=== PATIENT | male | born 1985 | race Caucasian/White ===

== ENCOUNTER 2017-10-29 22:10 | Emergency (ER) | payer OTHER ==
[2017-10-29 22:32] VITALS: RESP 18
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
[2017-10-30] MEDS ORDERED: KETOROLAC 30 MG/ML 1 ML VIAL IM STA (00:19)
[2017-10-30] MEDS ORDERED: ORPHENADRINE 30 MG/ML 2 ML VIAL IM STA (00:19)
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
[2017-10-30 00:47] VITALS: BP 140/66; PULSE 61; TEMP 98.5
== END 2017-10-30 00:46 | disposition home or self-care (01) ==
LOC: EC 22:10
DX: S16.1XXA Strain of muscle, fascia and tendon at neck level, initial encounter (principal); R51 Headache; Z79.899 Other long term (current) drug therapy; Z91.018 Allergy to other foods; Z91.013 Allergy to seafood; Z91.040 Latex allergy status; Z88.8 Allergy status to other drugs, medicaments and biological substances; W22.8XXA Striking against or struck by other objects, initial encounter; Y93.55 Activity, bike riding
CPT/HCPCS: 99283 ×2; 96372 ×3; 72125; 70450; J2360; J1885

== ENCOUNTER → 2018-07-11 | Outpatient (CLI) | payer OTHER ==
--- NOTE | 2018-07-11 09:06 | XR ---
EXAMINATION TYPE: XR thoracic spine complete DATE OF EXAM: 07/11/2018 CLINICAL HISTORY: Back pain and numbness in the upper back TECHNIQUE: Frontal, lateral, and swimmer's view of thoracic spine are obtained. COMPARISON: None. FINDINGS: There is a very mild dextroscoliosis of the thoracic spine. Thoracic spine show satisfactor y alignment without evidence of acute fracture or malalignment. Vertebral body heights and disc spac e heights are preserved. Visualized ribs are unremarkable. IMPRESSION: No acute fracture or malalignment is seen in the thoracic spine. Given the patient's desc ription of numbness MRI could evaluate for disc herniation or cord compression.
--- NOTE | 2018-07-11 09:06 | XR ---
EXAMINATION TYPE: XR lumbosacral spine min 4V DATE OF EXAM: 07/11/2018 CLINICAL HISTORY: Low back pain after injury a few months ago. TECHNIQUE: Frontal, lateral, and oblique images of the lumbar spine are obtained. COMPARISON: None FINDINGS: There are 5 lumbar type vertebral bodies identified. The lumbar spine shows satisfactory alignment without evidence of acute fracture or dislocation. Vertebral body heights and disk space he ights are within normal limits. The oblique images appear within normal limits. The overlying soft tissue appears unremarkable. IMPRESSION: Unremarkable study.
== END | disposition home or self-care (01) ==
LOC: RADXRMAIN 07:17
DX: M54.6 Pain in thoracic spine (principal); M54.41 Lumbago with sciatica, right side; G89.29 Other chronic pain
CPT/HCPCS: 72072; 72110

== ENCOUNTER → 2018-08-22 | Outpatient (CLI) | payer OTHER ==
--- NOTE | 2018-08-22 22:32 | MR ---
EXAMINATION TYPE: MR lumbar spine wo con DATE OF EXAM: 08/22/2018 COMPARISON: Lumbar spine x-ray July 11, 2018 HISTORY: Right-sided low back pain with right-sided sciatica per order. Pain in back from injury for 4 months with pain into both lower extremities per patient. TECHNIQUE: Multiplanar, multisequence imaging of the lumbar spine is performed without IV contrast. FINDINGS: Sagittal images of the lumbar spine show vertebral body heights and alignment to appear sat isfactory. The intervertebral discs demonstrate normal heights and hydration. The conus medullaris i s normal in position and signal. The bone marrow signal intensity is within normal limits. Axial images show no focal disc disease, or facet degenerative change at any lumbar level. There is no spinal canal stenosis, neural foraminal narrowing, or evidence of nerve root compromise. Paraspina l muscle bulk is maintained. No suspicious retroperitoneal finding is seen. IMPRESSION: No suspicious disc herniations identified to account for patient's radiculopathy type sym ptoms. Unremarkable study.
== END ==
LOC: RADMRIMAIN 20:30
PROVIDERS: ATTEND Physical Medicine & Rehabilitation
DX: M54.41 Lumbago with sciatica, right side (principal)
CPT/HCPCS: 72148

== ENCOUNTER → 2021-05-10 | Outpatient (CLI) | payer OTHER ==
[2021-05-10 19:24] LABS: C Reactive Protein <0.30 mg/dL (0.00-0.80); Rheumatoid Factor, Qnt <10 IU/mL (0-15); Uric Acid 4.8 mg/dL (3.7-8.7)
[2021-05-10 20:05] LABS: Cyclic Citrull Pep IgG Unit <0.5 U/mL; Cyclic Citrullinated Pep IgG NEGATIVE (NEGATIVE)
[2021-05-12 14:14] LABS: Anti-DNA, DS unit <1.0 IU/mL; DNA Double-Stranded NEGATIVE (NEGATIVE)
== END | disposition home or self-care (01) ==
LOC: LABWHC1 09:44
PROVIDERS: ATTEND Internal Medicine
DX: M79.641 Pain in right hand (principal); M79.672 Pain in left foot
CPT/HCPCS: 36415; 84443; 84550; 85652; 86038; 86039; 86140; 86200; 86225; 86431

== ENCOUNTER 2022-04-22 16:30 | Emergency (ER) | payer OTHER ==
[2022-04-22 16:36] VITALS: TEMP 98.5
--- NOTE | 2022-04-22 17:51 | ED ---
General Adult HPI - General Chief complaint: Abdominal Pain Stated complaint: Abd pain Time Seen by Provider: 04/22/22 17:06 Source: patient Mode of arrival: ambulatory Limitations: no limitations - History of Present Illness Initial comments: This is a 37-year-old male with no past medical history presents emergency department for right upper quadrant abdominal pain. The patient stated that this pain began 2 days ago and has been consistent with stabbing pain in the right upper quadrant. The patient stated this began when he had a greasy, fried chicken sandwich and stayed persistent. The patient also stated that the pain became worse after he ate a sandwich earlier today. The patient reported some mild nausea without vomiting. The patient stated that he didn't have any radiation of this pain. The patient stated this pain is however slightly easier to manage compared to his previous appendicitis pain. The patient denied any other acute pain or complaints at this time. - Related Data Home Medications Medication Instructions Recorded Confirmed Albuterol Inhaler [Ventolin Hfa 1 - 2 puff INHALATION Q6HR PRN 10/01/15 10/01/15 Inhaler] Beclomethasone Dipropionate [Qvar 1 puff INHALATION 10/01/15 10/01/15 80 mcg] Erythromycin Ophth Oint [Romycin 1 applic LEFT EYE QID 10/01/15 10/01/15 Ophth Oint] HYDROcodone/APAP 10-325MG [[place] 1 tab PO Q4HR PRN 10/01/15 10/01/15 10-325] Moxifloxacin [Vigamox 0.3%] 1 drop LEFT EYE TID 10/01/15 10/01/15 cephALEXin [Keflex] 750 mg PO Q12HR 10/01/15 10/01/15 Previous Rx's Medication Instructions Recorded Cyclobenzaprine [Flexeril] 5 mg PO TID #12 tablet 10/30/17 Ibuprofen [Motrin] 600 mg PO Q6HR PRN #20 tab 10/30/17 Allergies Allergy/AdvReac Type Severity Reaction Status Date / Time banana Allergy Anaphylaxis Verified 04/22/22 16:36 iodine Allergy Swelling Verified 04/22/22 16:36 latex Allergy Unknown Verified 04/22/22 16:36 shellfish derived [Shellfish] Allergy Swelling Verified 04/22/22 16:36 Review of Systems ROS Statement: Those systems with pertinent positive or pertinent negative responses have been documented in the HPI. ROS Other: All systems not noted in ROS Statement are negative. Past Medical History Past Medical History: Asthma History of Any Multi-Drug Resistant Organisms: None Reported Past Surgical History: Appendectomy Additional Past Surgical History / Comment(s): orbital fracture repain Past Psychological History: No Psychological Hx Reported Smoking Status: Never smoker Past Alcohol Use History: Occasional Past Drug Use History: None Reported General Exam Limitations: no limitations General appearance: alert, in no apparent distress Head exam: Present: atraumatic, normocephalic, normal inspection Eye exam: Present: normal appearance, PERRL Pupils: Present: normal accommodation ENT exam: Present: normal exam, normal oropharynx, mucous membranes moist Neck exam: Present: normal inspection, full ROM Respiratory exam: Present: normal lung sounds bilaterally Cardiovascular Exam: Present: regular rate, normal rhythm, normal heart sounds GI/Abdominal exam: Present: soft, tenderness (Tenderness to the right upper quadrant with positive Montez sign) Extremities exam: Present: normal inspection, full ROM Back exam: Present: normal inspection, full ROM Neurological exam: Present: alert, oriented X3, CN II-XII intact Psychiatric exam: Present: normal affect, normal mood Skin exam: Present: warm, dry Course Vital Signs 04/22/22 16:34 Temperature 98.5 F Pulse Rate 74 Respiratory 20 Rate Blood Pressure 146/86 O2 Sat by Pulse 99 Oximetry Medical Decision Making - Medical Decision Making Was pt. sent in by a medical professional or institution (DMITRIY Jacob, PSYCHOLOGIST CLINICAL, urgent care, hospital, or [place] health care facility...) When possible be specific @ -No Did you speak to anyone other than the patient for history (EMS, parent, family, police, friend...)? What history was obtained from this source @ -No Did you review nursing and triage notes (agree or disagree)? Why? @ -I reviewed and agree with nursing and triage notes Were old charts reviewed (outside hosp., previous admission, EMS record, old EKG, old radiological studies, urgent care reports/EKG's, [place] health care facility records)? Report findings @ -No old charts were reviewed Differential Diagnosis (chest pain, altered mental status, abdominal pain women, abdominal pain men, vaginal bleeding, weakness, fever, dyspnea, syncope, headache, dizziness, GI bleed, back pain, seizure, CVA, palpatations, mental health)? @ -Acute cholecystitis, gastritis, abdominal wall muscle strain EKG interpreted by me (3pts min.). @ -None X-rays interpreted by me (1pt min.). @ -None done CT interpreted by me (1pt min.). @ -None done U/S interpreted by me (1pt. min.). @ -Right upper quadrant ultrasound was obtained and was reviewed by myself showing no acute process. What testing was considered but not performed or refused? (CT, X-rays, U/S, l abs)? Why? @ -None What meds were considered but not given or refused? Why? @ -None Did you discuss the management of the patient with other professionals (professionals i.e. , PA, PSYCHOLOGIST CLINICAL, lab, RT, psych nurse, rn social services, sprue cutting press operator, teacher, admissions officer, residential case manager)? Give summary @ -No Was smoking cessation discussed for >3mins.? @ -No Was critical care preformed (if so, how long)? @ -No Were there social determinants of health that impacted care today? How? (Homelessness, low income, unemployed, alcoholism, drug addiction, transportation, low edu. Level, literacy, decrease access to med. care, custodial, rehab)? @ -No Was there de-escalation of care discussed even if they declined (Discuss DNR or withdrawal of care, Hospice)? DNR status @ -No What co-morbidities impacted this encounter? (DM, HTN, Smoking, COPD, CAD, Cance r, CVA, ARF, Chemo, Hep., AIDS, mental health diagnosis, sleep apnea, morbid obesity)? @ -None Was patient admitted / discharged? Hospital course, mention meds given and route, prescriptions, significant lab abnormalities, going to OR and other pertinent info. @ -The patient was seen and evaluated in the emergency room department. Physical exam, the patient was resting in bed without any acute distress. Vital signs admission were stable. All laboratory workup was within normal limits and imaging was negative. Once I told the patient that her breathing was negative, he did state that he was lifting a car just before the start of symptoms and thinks he could have pulled a muscle. The patient remained stable and was stable for discharge home. The patient was advised report back to the emergency department if his pain became acutely worse. The patient was agreeable to this and was discharged home in stable condition. Undiagnosed new problem with uncertain prognosis? @ -No Drug Therapy requiring intensive monitoring for toxicity (Heparin, Nitro, Insulin, Cardizem)? @ -No Were any procedures done? @ -No Diagnosis/symptom? @ -Abdominal pain, NOS Acute, or Chronic, or Acute on Chronic? @ -Acute Uncomplicated (without systemic symptoms) or Complicated (systemic symptoms)? @ -Uncomplicated Side effects of treatment? @ -No Exacerbation, Progression, or Severe Exacerbation? @ -No Poses a threat to life or bodily function? How? (Chest pain, [place], MA, pneumonia, PE, COPD, DKA, ARF, appy, cholecystitis, CVA, Diverticulitis, Homicidal, Suicidal, threat to staff... and all critical care pts) @ -No - Lab Data Result diagrams: 04/22/22 17:28 04/22/22 17:28 Lab Results 04/22/22 04/22/22 Range/Units 17:28 17:28 WBC 7.0 (3.8-10.6) k/uL RBC 5.00 (4.30-5.90) m/uL Hgb 16.3 (13.0-17.5) gm/dL Hct 44.0 (39.0-53.0) % MCV 88.0 (80.0-100.0) fL MCH 32.6 (25.0-35.0) pg MCHC 37.1 H (31.0-37.0) g/dL RDW 12.4 (11.5-15.5) % Plt Count 244 (150-450) k/uL MPV 7.8 Hyperchromasia Marked Sodium 141 (137-145) mmol/L Potassium 4.7 (3.5-5.1) mmol/L Chloride 106 (98-107) mmol/L Carbon Dioxide 27 (22-30) mmol/L Anion Gap 8 mmol/L BUN 19 (9-20) mg/dL Creatinine 1.14 (0.66-1.25) mg/dL Est GFR (CKD-EPI)AfAm >90 (>60 ml/min/1.73 sqM) Est GFR (CKD-EPI)NonAf 83 (>60 ml/min/1.73 sqM) Glucose 99 (74-99) mg/dL Calcium 9.6 (8.4-10.2) mg/dL Magnesium 2.0 (1.6-2.3) mg/dL Total Bilirubin 0.8 (0.2-1.3) mg/dL AST 23 (17-59) U/L ALT 27 (4-49) U/L Alkaline Phosphatase 57 (38-126) U/L Total Protein 7.0 (6.3-8.2) g/dL Albumin 4.4 (3.5-5.0) g/dL Lipase 103 (23-300) U/L Disposition Clinical Impression: Abdominal pain Disposition: HOME SELF-CARE Condition: Stable Instructions (If sedation given, give patient instructions): Abdominal Pain (ED) Is patient prescribed a controlled substance at d/c from ED?: No Referrals: None,Stated [Primary Care Provider] - 1-2 days Time of Disposition: 19:15
--- NOTE | 2022-04-22 18:06 | US ---
EXAMINATION TYPE: US abdomen limited DATE OF EXAM: 04/22/2022 COMPARISON: NONE CLINICAL HISTORY: RUQ pain, r/o jackelyn. RUQ pain, nausea x 2 days TECHNIQUE: Multiple sonographic images of the right upper quadrant are obtained. FINDINGS: EXAM MEASUREMENTS: Liver Length: 16.4 cm Gallbladder Wall: 0.3 cm CBD: 0.4 cm Right Kidney: 9.9 x 5.4 x 4.4 cm BEND SORTER NOTES: *Limitations due to large amount of overlying bowel content Pancreas: Obscured by bowel gas Liver: appears wnl Gallbladder: contracted Evidence for sonographic Montez's sign: no CBD: limited evaluation Right Kidney: no evidence of hydronephrosis IMPRESSION: No gallstones or dilated ducts. No focal liver defect.
[2022-04-22 18:13] LABS: ALT 27 U/L (4-49); AST 23 U/L (17-59); African American GFR (CKD) >90 (>60 ml/min/1.73 sqM); Albumin 4.4 g/dL (3.5-5.0); Alkaline Phosphatase 57 U/L (38-126); Anion Gap 8 mmol/L; Blood Urea Nitrogen 19 mg/dL (9-20); Calcium 9.6 mg/dL (8.4-10.2); Carbon Dioxide 27 mmol/L (22-30); Chloride 106 mmol/L (98-107); Glucose 99 mg/dL (74-99); Lipase 103 U/L (23-300); Non-African American GFR(CKD) 83 (>60 ml/min/1.73 sqM); Potassium 4.7 mmol/L (3.5-5.1); Sodium 141 mmol/L (137-145); Total Bilirubin 0.8 mg/dL (0.2-1.3)
[2022-04-22 19:04] LABS: Basophils # (A) 0.1 k/uL (0-0.2); Basophils % (A) 1 %; Eosinophils # (A) 0.4 k/uL (0-0.7); Eosinophils % (A) 5 %; HGB 16.3 gm/dL (13.0-17.5); Hyperchromasia Marked; Lymphocytes # (A) 1.9 k/uL (1.0-4.8); Lymphocytes % (A) 27 %; MCH 32.6 pg (25.0-35.0); MCHC 37.1 g/dL (31.0-37.0); Mean Platelet Volume 7.8; Monocytes # (A) 0.4 k/uL (0-1.0); Monocytes % (A) 6 %; Neutrophils # (A) 4.1 k/uL (1.3-7.7); Neutrophils % (A) 59 %; Platelet Count 244 k/uL (150-450); RDW 12.4 % (11.5-15.5)
[2022-04-22 19:42] VITALS: BP 135/80; PULSE 79; RESP 18
== END 2022-04-22 19:42 | disposition home or self-care (01) ==
LOC: EC 16:30
DX: R10.11 Right upper quadrant pain (principal); J45.909 Unspecified asthma, uncomplicated; Z91.040 Latex allergy status; Z91.013 Allergy to seafood; Z91.018 Allergy to other foods; Z88.8 Allergy status to other drugs, medicaments and biological substances; Z79.51 Long term (current) use of inhaled steroids; Z79.1 Long term (current) use of non-steroidal anti-inflammatories (NSAID); Z79.899 Other long term (current) drug therapy
CPT/HCPCS: 36415; 76705; 80053; 83690; 83735; 85025; 99284

== ENCOUNTER 2023-05-04 12:21 | Emergency (ER) | payer OTHER ==
[2023-05-04 13:01] VITALS: RESP 18
--- NOTE | 2023-05-04 13:25 | CT ---
EXAMINATION TYPE: CT brain wo con DATE OF EXAM: 05/04/2023 COMPARISON: 10/29/2017 INDICATION: HEADACHE DLP: 1093.4 mGycm, Automated exposure control for dose reduction was used. CONTRAST: None CT of the brain is performed utilizing 3 mm thick sections through the posterior fossa and 3 mm thick sections through the remaining calvarium. Study is performed within 24 hours of arrival to the hosp [place]. No abnormal hyperdensity is present to suggest an acute intracranial hemorrhage. No mass lesion is evident. No acute infarcts are evident. Ventricles and sulci are appropriate for the patient age. Paranasal sinuses and mastoid air cells within the [id number] are clear. IMPRESSION: 1. No acute intracranial process. Follow-up MRI can be performed as clinically indicated.
[2023-05-04] MEDS ORDERED: KETOROLAC 15 MG/ML 1 ML VIAL IM STA (13:52)
--- NOTE | 2023-05-04 13:57 | ED ---
General Adult HPI - General Chief complaint: Headache Stated complaint: headache, neck pain, referal Time Seen by Provider: 05/04/23 13:01 Source: patient, RN notes reviewed Mode of arrival: ambulatory Limitations: no limitations - History of Present Illness Initial comments: Patient a 38-year-old male with no significant past medical history, presenting to the emergency room today with a chief complaint of headaches. Patient has been that over last 4 days been having a headache located to the back of the left side of his head. Denies any injury or trauma. Patient states that pain is worse with certain movements of his neck. Specially if he rotates to the left or if he looks down. He states that he does have an active job but there is no new injury or trauma. Patient does admit that is been taking ibuprofen has had some relief of the symptoms. Patient states he went to urgent care was directed here to the emergency room to have a CT scan. Patient denies any visual change. Denies any nausea vomiting. Denies any fevers. Denies any chest pain or shortness of breath. - Related Data Home Medications Medication Instructions Recorded Confirmed Albuterol Inhaler [Ventolin Hfa 1 - 2 puff INHALATION Q6HR PRN 10/01/15 10/01/15 Inhaler] Beclomethasone Dipropionate [Qvar 1 puff INHALATION 10/01/15 10/01/15 80 mcg] Erythromycin Ophth Oint [Romycin 1 applic LEFT EYE QID 10/01/15 10/01/15 Ophth Oint] HYDROcodone/APAP 10-325MG [[place] 1 tab PO Q4HR PRN 10/01/15 10/01/15 10-325] Moxifloxacin [Vigamox 0.3%] 1 drop LEFT EYE TID 10/01/15 10/01/15 cephALEXin [Keflex] 750 mg PO Q12HR 10/01/15 10/01/15 Previous Rx's Medication Instructions Recorded Cyclobenzaprine [Flexeril] 5 mg PO TID #12 tablet 10/30/17 Ibuprofen [Motrin] 600 mg PO Q6HR PRN #20 tab 10/30/17 Ibuprofen [Motrin] 600 mg PO Q6HR PRN #40 day 05/04/23 methocarbamoL [Robaxin] 1,000 mg PO TID PRN 5 Days #30 tab 05/04/23 Allergies Allergy/AdvReac Type Severity Reaction Status Date / Time banana Allergy Anaphylaxis Verified 05/04/23 12:33 iodine Allergy Swelling Verified 05/04/23 12:33 latex Allergy Unknown Verified 05/04/23 12:33 shellfish derived [Shellfish] Allergy Swelling Verified 05/04/23 12:33 Review of Systems ROS Statement: Those systems with pertinent positive or pertinent negative responses have been documented in the HPI. ROS Other: All systems not noted in ROS Statement are negative. Past Medical History Past Medical History: Asthma History of Any Multi-Drug Resistant Organisms: None Reported Past Surgical History: Appendectomy Additional Past Surgical History / Comment(s): orbital fracture repain Past Psychological History: No Psychological Hx Reported Smoking Status: Never smoker Past Alcohol Use History: Occasional Past Drug Use History: None Reported General Exam - General Exam Comments Initial Comments: General: The patient is awake and alert, in no distress, and does not appear acutely ill. Eye: Pupils are equal round reactive to light. Extra-ocular movements are intact. There is normal conjunctiva bilaterally. No signs of icterus. Ears, nose, mouth and throat: There are moist mucous membranes and no oral lesions. Neck: The neck is supple, there is no tenderness or JVD. Respiratory: respirations are non-labored Musculoskeletal: Patient shows full range of motion of his neck. He does have increased tenderness with rotation to the left. Patient does have tenderness to the left sternocleidomastoid area. Neurological: A&O x 3. CN II-XII intact, There are no obvious motor or sensory deficits. Coordination appears grossly intact. Speech is normal. Skin: Skin is warm and dry and no rashes or lesions are noted. Psychiatric: Cooperative, appropriate mood & affect, normal judgment. Limitations: no limitations Course Vital Signs 05/04/23 12:30 Temperature 98.6 F Pulse Rate 84 Respiratory 18 Rate Blood Pressure 141/89 O2 Sat by Pulse 98 Oximetry Medical Decision Making - Medical Decision Making History was obtained from patient/Nurse Initial assessment and chief complaint: Neck pain, headache Chronic conditions affecting care: None Social determinants affecting care: None Differential diagnosis included, but not limited to: Cervical strain, herniated disc, migraine, tension headache, intracranial bleed Any imaging that may have been performed was also reviewed. I did an independent interpretation of the patient's imaging. My interpretation of CT of head was reviewed was unremarkable. 38-year-old male presented to the emergency room today with a chief complaint of headache over the last 4 days. Denies any injury or trauma. Patient does admit that pain is located to the back left side and worse with certain movements of his neck on the left. Was seen at urgent care was directed here to the emergency room for CAT scan. A CT was ordered and was negative for any acute abnormality. Patient's pain is reproduced on palpation of the left side of the neck and with certain movements. Patient vitals are stable. Nontoxic- appearing. Was discussed most likely cervical strain causing his headaches. Discussed about continue with anti-inflammatories as states there is improvement when he takes this. He is taking ibuprofen just twice a day. Discussed about taking it 4 times a day as needed. Discussed about muscle relaxers and that they could make him drowsy. Prescription has been given to the patient and sent to his pharmacy. Patient was given Toradol shot here in the emergency room. Is advised close follow-up with his PCP returning if any symptoms increase or worsen. States understanding and is agreement this plan. Disposition Clinical Impression: Cervical strain, Headache Disposition: HOME SELF-CARE Condition: Good Instructions (If sedation given, give patient instructions): Acute Headache (ED) Additional Instructions: Please use medication as discussed. Please follow-up with family doctor in the next 2 days. Please return to emergency room if the symptoms increase or worsen or for any other concerns. Prescriptions: Ibuprofen [Motrin] 600 mg PO Q6HR PRN #40 day PRN Reason: Pain methocarbamoL [Robaxin] 1,000 mg PO TID PRN 5 Days #30 tab PRN Reason: pain Is patient prescribed a controlled substance at d/c from ED?: No Referrals: Jean-Paul Cuevas [Primary Care Provider] - 1-2 days Time of Disposition: 13:57
[2023-05-04 14:43] VITALS: BP 136/86; PULSE 80; TEMP 97.9
== END 2023-05-04 14:22 | disposition home or self-care (01) ==
LOC: EC 12:21
DX: S16.1XXA Strain of muscle, fascia and tendon at neck level, initial encounter (principal); R51.9 Headache, unspecified; J45.909 Unspecified asthma, uncomplicated; Z91.018 Allergy to other foods; Z91.013 Allergy to seafood; Z91.041 Radiographic dye allergy status; Z91.040 Latex allergy status; Z79.899 Other long term (current) drug therapy
CPT/HCPCS: 70450; 99284; 96372; J1885

== ENCOUNTER → 2023-09-16 | Outpatient (CLI) | payer OTHER ==
--- NOTE | 2023-09-17 21:45 | MR ---
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 History of injury 2018. COMPARISON: 07/18/2023. TECHNIQUE: Multi planar, multi sequence imaging was performed utilizing: T1-weighted, T2-weighted, an d turbo inversion recovery imaging of the cervical spine. IV Contrast: cc (none if empty) FINDINGS: Alignment: The cervical vertebral bodies have preserved heights. Alignment is within normal limits gi jennie patient positioning. Bones: Osteophytes and disc space narrowing most pronounced at the C5-C6 vertebral levels. Cord: The spinal cord is unremarkable with regards to their signal intensity and morphology. Discs: Intervertebral disc signal is maintained. C2-C3: No significant disc pathology. The spinal canal is patent. No neural foraminal stenosis. C3-C4: No significant disc pathology. The spinal canal is patent. No neural foraminal stenosis. C4-C5: No significant disc pathology. The spinal canal is patent. No neural foraminal stenosis. C5-C6: A disc osteophyte complex is present with mild spinal canal stenosis. Bilateral facet and unc overtebral joint arthropathy are present with mild to moderate bilateral neural foraminal stenosis. C6-C7: No significant disc pathology. The spinal canal is patent. No neural foraminal stenosis. C7-T1: No significant disc pathology. The spinal canal is patent. No neural foraminal stenosis. Other: Right superficial parotid gland high T2 signal cystic lesion measuring 14 x 10 mm just anterio r to the sternocleidomastoid muscle. There is loss of flow void within the right vertebral artery compared to left series 601 image 39. IMPRESSION: 1. No evidence for disc herniation or significant spinal canal stenosis. 2. Multilevel disc degeneration with associated osteoarthritic changes worse at C5-C6 with mild to mo derate bilateral neural foraminal stenosis. 3. Loss of flow void within the right vertebral artery on a few of the images unclear if this is due to slow flow or occlusion. Consider evaluation with CTA of the neck for further workup. 4. 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
== END | disposition home or self-care (01) ==
LOC: RADMRIMAIN 09:18
PROVIDERS: ATTEND Orthopaedic Surgery
DX: M50.322 Other cervical disc degeneration at C5-C6 level (principal); M47.22 Other spondylosis with radiculopathy, cervical region; M99.71 Connective tissue and disc stenosis of intervertebral foramina of cervical region
CPT/HCPCS: 72141

== ENCOUNTER → 2024-03-14 | Outpatient (CLI) | payer OTHER | END | disposition home or self-care (01) | LOC: LABWHC1 08:55 | PROVIDERS: ATTEND Orthopaedic Surgery | DX: Z01.818 Encounter for other preprocedural examination (principal); Z22.322 Carrier or suspected carrier of Methicillin resistant Staphylococcus aureus; M48.02 Spinal stenosis, cervical region; M47.26 Other spondylosis with radiculopathy, lumbar region | CPT/HCPCS: 36415; 86850; 86900; 86901; 87070 ==

== ENCOUNTER 2024-03-21 05:44 | Day surgery (SDC) | payer OTHER ==
--- NOTE | 2024-03-18 07:31 | P.HPOR ---
History of Present Illness H&P Date: 03/13/24 .D:Date: 03/13/24 : 03:27pm .T:Title: PRE-OP H1 [facility] [address] [place], [place] [address] [address]| PROVIDER: MARIALUISA BRIONES DO CLINICAL SUMMARY: Mr. Jones is a 39-year-old male presenting with severe cervical pain (VAS 7/10) and bilateral upper extremity radiculopathy. He experiences constant posterior neck pain radiating to bilateral upper extremities, with sharp shooting qualities and intermittent "stabbing ice-pick" sensations. He reports progressive upper extremity numbness, tingling, and increased neck stiffness with activity. Imaing confirms C3-6 HNP with spondylosis and stenosis. Pt has elected to undergo C3-6 ACDF. Risks and benefits discussed below. Pt willing to proceed. DEMOGRAPHICS: Age: 39 year Height: 5'10" Weight: 185 lbs BP:/ BMI: 26.54 kg/m2 Occupation: Self CC: cervical pain VAS: 7 HISTORY: Mr. Jones presents to the office today, 03/13/24, for a preoperative appointment preceding his C4-6 ACDF. The patient reports experiencing a continued constant ache-like pain around the posterior neck that radiates down into the bilateral upper extremities with a sharp, shooting quality. The patient notes an intermittent "stabbing ice-pick" sensation around the base of the head down into the posterior neck, as well as a throbbing sensation around the left eye. The patient does not history of left orbital fracture several years ago. He notes progressive upper extremity numbness and tingling. He reports increased neck stiffness after prolonged activity. He states his current symptoms worsen with any quick movements of the neck or repetitive use of the upper extremities. The patient notes mild sleep disturbances related to his ongoing pain and associated symptoms. The patient has trialed all conservative treatment measures listed below with only mild, temporary relief. The patient is currently taking Gabapent in for relief of his current symptoms. Otherwise, the patient denies any f/c/sob/cp, perineal numbness or tingling, bowel or bladder incontinence/retention. Patient is ambulatoryindependently. The patients' past social, medical, family, surgical history, as well as review of systems, have been reviewed. Please refer to the Neurosurgery History and Physical form that has been scanned into our electronic medical record system. 16 points review of systems completed and as stated in HPI, all other systems reviewed are negative. PAST TREATMENTS: PAST IMAGING: - Yes TRAUMA RELATED: - No WORK RELATED: - No PT IN LAST 6 MONTHS: - Yes; no relief PHYSICIAN DIRECTED HOME EXERCISE PROGRAM: - Yes; no relief ACTIVITY MODIFICATION: - Yes MEDICATIONS: - Gabapentin ALTERNATIVE INTERVENTIONS (CHIROPRACTIC, ACUPUNCTURE, MASSAGE, RICE): - Yes (home heat/ice therapies & rest); mild, temporary relief BRACING: - No INJECTIONS (MG, TF, RFA): - None MEDICAL HISTORY: Past Medical History: Reviewed, see appropriate section of the chart for details. Past Spine Surgical History: None Social History: Reviewed, see appropriate section of the chart for details. P3 Family History: Reviewed, see appropriate section of the chart for details. P2 Current Medications: P1Rx: gabapentin 300 mg capsule Ref: 0 PHYSICAL EXAM: General: AOX3, NAD, Well hydrate, Well nourished HEENT: No lumps or masses Extremities: No color changes, no pooling INTEGUMENT: Appearance:Normal color and turgor Surgical Incisions: None Hairy Patches: ABSENT Dorsal Skin Dimples: Normal [employer] spots: ABSENT PALPATION: TTP Midline:NO Paracervical:YES Parathoracic:NO Paralumbar:NO SIJ TESTING: TTP (NONE) * [place] Finger:- * FABER4:- * Compression:- * Distraction:- * Thigh thrust:- * Hip thrust: - POSTURAL BALANCE: Coronal:BALANCED Sagittal:BALANCED Shoulder height: LEVEL Pelvic Girdle: LEVEL ROM AND APPEARANCE: Neck:RESTRICTED Lumbar:UNRESTRICTED Shoulders: Symmetrical Hips: Symmetrical Knees: Symmetrical Hands: Symmetrical Feet: Symmetrical VASCULAR STATUS: PALPABLE PULSES B/L UE AND LE 2/4 RAD/ULNAR/DP/PT Edema: NONE NEUROLOGICAL EXAMINATION: Mental Status: Awake, alert, oriented fully with normal attention, concentration and memory. Fluent appropriate speech. CRANIAL NERVES: I: Olfactory not tested. II: Visual acuity normal, no visual field deficit noted with confrontation. III,IV: Normal pupillary reflexes & intact extraocular movements without nystagmus. V,: Intact symmetrical facial sensation. VII: Intact symmetrical facial motor movementVIII: Hearing intact. IX,X: Intact gag, swallow, & normal voice. XI: Sternocleidomastoid, trapezius function intact. XII: Tongue midline with normal movements. TENSIONING: L'HERMITTE'S SIGN NEG SPURLUNG'S SIGN POS CUBITAL COMPRESSION NEG TINELS AT WRIST NEG SLR/CROSSED SLR NEG MOTOR EXAM (0-5/5, NT) Muscle appearance:Symmetrical, without signs of atrophy or dystrophy UPPER EXTREMITY RIGHT LEFT Shoulder Abduction 5 5 Biceps 5 5 Triceps 5 5 Wrist Extension 4 4+ Hand Intrnsics 5 5 Sandfill Operator Surface 4 4 LOWER EXTREMITY RIGHT LEFT Hip Flexion 5 5 Knee Extension 5 5 Knee Flexion 5 5 Dorsiflexion 5 5 Plantarflexion 5 5 EHL 5 5 FHL 5 5 REFLEXES (0-4/2, NT): RIGHT LEFT Bicep 2 2 Brachioradialis 2 2 Tricep 2 2 Patellar 2 2 Achilles 2 2 PATHOLOGICAL REFLEXES: RIGHT LEFT JEFFREY'S ABSENT ABSENT CLONUS ABSENT ABSENT BABINSKI ABSENT ABSENT RECTAL TONE: INTACT SENSATION (0-4, NT): Sensation intact to LT and Pain * C5-T1 distribution BUE * L2-S2 distribution BLE *exceptions below* DERMATOMAL DEFICIT/RADICULAR PATTERN: C4-C6 GAIT AND FUNCTIONAL EVALUATION: AMBULATORY AID NONE ROMBERG'S TEST INTACT HAND AND FINGER DEXTERITY INTACT YES DYSDIADOCHOKINESIA EXAM NEG B/L YES TOE/HEEL WALK INTACT WITH GOOD BALANCE YES SQUAT AND RISE W/O ASSISTANCE TO 60 DEG KNEE FLEXION YES SINGLE LEG STANCE INTACT TRENDELENBURG NEG IMAGING CT angio head and neck at [facility] 12/08/23: Similar findings to MRI with collapse of C4-5 and C5-6 that is severe with DDD and sclerosis due to the collapse. NO fractues noted. See report for angio read. No significant stenosis noted. MRI Cervical spine w/wo 09/16/23: Reviewed again. C4-6 degenerative changes with severe collapse of C5-6 disc space as well as moderate collapse of C4-5. There is kyphosis segmentally at C4-5 due to collapse. Degenerative disc herniations present at each level causing moderate stenosis at C4-5 and severe stenosis at C5-6 centrally and foraminally. No fractures noted. C0-1 and C1-2 are stable at this time. Cyst is all but gone from the SCM at this time as it was after the biopsy. C spine XR done at [facility] 4/16/24 AP/LAT/FLEX/EXT/OB: Reviewed again. C4-6 spondylosis with disc collapse, osteophyte formation and kyphosis present due to spondylotic collapse. IMPRESSION: It was my pleasure to have seen and examinedJerry.I reviewed the patient's clinical syndrome, physical findings, and imaging studies during the appointment today. It is my impression that the patient has a diagnosis of. 1. C4-6 spondylosis with stenosis 2. Bilateral upper extremity radiculopathy 3. Right parotid cyst, benign PLAN: DISCUSSION: -I have discussed with the patient their clinical signs and symptoms, imaging, and treatment options. We have discussed risks, benefits, potential outcomes and natural course as pertains top their issues. The patient understands and would like to proceed as follows below: SURGICAL RECOMMENDATION -C4-6 Anterior cervical discecomty and fusion anterior right side approach out pt 1.25 hr THERAPIES - -Cont. with home exercises and home PT exercises as able -Cont. with Heat/Ice as warranted -Cont. with supplementation Vit D, Vit C, Ca2+, High protein diet -OK for massage or other alternative treatment modalities as able. If it exacerbates your sx do not continue ACTIVITY -Recommend walking up to 30 min 2x daily on a flat easy surface with good support. MEDICATIONS -Take as directed -Cont. home medications as directed by your PCP. Check with your PCP for any medication interactions or issues if needed. IMAGING -N/A INJECTIONS -N/A Spine Surgery Risk Review Mr. Jones is presenting for evaluation of cervical pain. It was my pleasure to have seen and examined Mr. Jones. In our visit today we have had a chance to go over subjective complaints, physical examination findings and treatments including the natural course history without intervention and various interventional options. The patients imaging demonstrates: CT angio head and neck at [facility] 12/08/23: Similar findings to MRI with collapse of C4-5 and C5-6 that is severe with DDD and sclerosis due to the collapse. NO fractures noted. See report for angio read. No significant stenosis noted. MRI Cervical spine w/wo 09/16/23: Reviewed again. C4-6 degenerative changes with severe collapse of C5-6 disc space as well as moderate collapse of C4-5. There is kyphosis segmentally at C4-5 due to collapse. Degenerative disc herniations present at each level causing moderate stenosis at C4-5 and severe stenosis at C5-6 centrally and foraminally. No fractures noted. C0-1 and C1-2 are stable at this time. Cyst is all but gone from the SCM at this time as it was after the biopsy. C spine XR done at [facility] 07/18/23 AP/LAT/FLEX/EXT/OB: Reviewed again. C4-6 spondylosis with disc collapse, osteophyte formation and kyphosis present due to spondylotic collapse. On physical exam, Mr. Jones demonstrates: The patient reports experiencing a continued constant ache-like pain around the posterior neck that radiates down into the bilateral upper extremities with a sharp, shooting quality. The patient notes an intermittent "stabbing ice-pick" sensation around the base of the head down into the posterior neck, as well as a throbbing sensation around the left eye. The patient does not history of left orbital fracture several years ago. He notes progressive upper extremity numbness and tingling. He reports increased neck stiffness after prolonged activity. He states his current symptoms worsen with any quick movements of the neck or repetitive use of the upper extremities. The patient notes mild sleep disturbances related to his ongoing pain and associated symptoms. I have explained to the patient that as their condition progresses it will cause further neurological deficits and eventual paralysis. Based on the patients imaging, physical exam, and the rapid progression and disabling nature of their symptoms, at this time I recommend surgery in the form of a: C4-6 ACDF. I discussed the risk and benefits of this procedure at length with Mr. Jones. The patient agreed to considered pursuing the procedure abovementioned. Prior to surgery, she should follow up with her PCP (Cardio, ID, IM etc) for clearance. Questions were invited and answered, and the patient wishes to proceed as outlined below. Currently, I am recommendin. C4-6 ANTERIOR CERVICAL DISCECOMTY AND FUSION 2.Follow up with PCP for surgical clearance 3.Review of surgical risks and benefits as well as an educational packet on the proposed surgical procedure. Risks: All surgical procedures come with inherent risks, including those related to positioning, anesthesia, intraoperative findings, and postoperative complications. It is important to understand that surgery does not come with any guarantee of a successful outcome as complications and adverse events are always possible. The patient was given a handout in office today discussing the surgical procedure and risks associated with the intervention, both of which were discussed with the patient. These risks include but are not limited to the following: * Experiencing same, different or even worse symptoms in back, neck, arms, or legs compared to before surgery. Requiring further surgery or other forms of treatment presently or at some time in the future at same or other levels of the intended spine surgery. On an extreme but fortunately relatively rare basis severe complication such as blindness, stroke, heart attack, temporary and/or permanent nerve injury, paralysis, coma, or may occur, sometimes without known explanation. Surgical complications may include but are not limited to risk of infection, fluid accumulation in the surgical dissection site, including a seroma or hematoma, that requires additional surgery, wound drainage, bleeding, new numbness or weakness, vision changes/loss, spinal fluid leakage, non-healing and/or infected incision, headaches, difficulty or inability to swallow, hoarseness, hemopneumothorax, pneumothorax, impotence, retrograde ejaculation, vaginal dryness; injury to nerves, spinal cord, blood vessels, lymphatics or other vital organs (i.e., bowel injury, injury to the great vessels); heterotopic bone formation; complications related to the hardware such as screws, rods, cages including misplaced hardware, device failure, instrumentation at the wrong spine level, hardware fracture/breakage, or hardware loosening; vertebral failure of the spinal column above or below the newly placed hardware; retained surgical instrumentations or devices and the need for further surgery. * Medical risks of the planned spine surgery include but are not limited to generalized Infections to the whole body or local areas outside of the surgical site (sepsis), heart attack, bleeding, anaphylaxis, meningitis, seizure, epilepsy, hearing loss, burn bruno, laceration of the head or other areas of the body, bruising, hypersensitivity of the skin, bladder over distension; allergic reaction; shoulder injury related to positioning; fat, blood and air clots to other areas of the body like heart, lungs, brain; failure of internal organs such as lungs, kidneys, liver and excessive bleeding. If blood transfusions are necessary, note that transfusions may cause intolerance reactions such as anaphylaxis or other complex reactions. Despite best efforts, the results of spine surgery might not heal in terms of bone, soft tissues such as skin, fascia, ligaments, and joints. Additionally, in order to achieve best possible results, spine surgery may be carried out beyond the initially planned levels and involve decompression, fusion including insertion of hardware at levels other than the original intended area of surgical interest change some portions of the procedure in order to ensure the best possible outcomes. With spine surgery and spinal fusion, there are different off label uses of instrumentation (devices, implants and hardware) as well as biological substances (bone morphogenic proteins, demineralized bone matrix) as well as using extra bone from allograft sources (i.e. cadaver bone) or autograft (iliac crest bone, ribs, or the spine itself). The patient has been given information about these practices and their inherent risks and benefits. [facility] is an educational center that serves as a training facility for neurosurgical and orthopedic LOCKER ROOM SUPERVISOR and Nursing students. Physician assistants are medically trained surgical providers who function in the outpatient, inpatient, and operating room setting under the direct supervision of the attending surgeon. [facility] has multiple operating rooms with single and overlapping rooms running daily. They currently function under the required guidelines as produced by the [facility] Finance Committee with regards to the overlapping rooms and will continue to comply with changes to this policy as they occur. The requirements include and are complied with as follows: (1) the critical portions of the overlapping rooms will not occur at the same time, (2) the attending physician will be physically present during the critical portions of the procedure and immediately available during the entire case, and (3) a back-up attending is designated should the primary attending not be immediately available. The patient has had a chance to review all the listed information, has been given print outs detailing this information, and has had all his/her questions answered to their satisfaction. It was my pleasure to have seen and examined Mr. Jones. In our visit today we have had a chance to go over my understanding of our patient's current condition, the natural course history without intervention and various interventional options. Questions were invited and answered, and the patient wishes to proceed as outlined above. I have seen and examined the patient for 25 minutes and we have spent more than 50% of the time in repeat and detailed counseling about the patient's condition, its natural course history with out and as much as can be predicted with surgery and re-review of various surgical treatment options. In conclusion, Mr. Jones requested we proceed with the above suggested surgery and are willing to accept risks and limitations of the suggested surgery as nature of the disease process and our best attempts at treatment for the condition. Medical Necessity: Imaging studies reveal extensive C4-6 spondylosis characterized by severe disc collapse at C5-6 and moderate collapse at C4-5, resulting in significant kyphotic deformity. MRI findings demonstrate substantial degenerative disc herniations causing moderate to severe stenosis, particularly notable at C4-5 (moderate) and C5-6 (severe) levels, affecting both central and foraminal regions. Multiple conservative treatment approaches have been attempted, including structured physical therapy, a comprehensive home exercise program, and appropriate medication management protocols, all of which have resulted in only minimal and unsustained symptomatic relief. Surgical Rationale: Based on the combination of progressive neurological symptomatology, well- documented severe spinal stenosis confirmed through multiple imaging modalities, and the documented failure of extensive conservative management approaches, surgical intervention in the form of C4-6 ACDF is strongly indicated. This intervention is particularly crucial to prevent further neurological deterioration, address the existing structural abnormalities, and mitigate the risk of permanent neurological compromise including potential paralysis. The patient has undergone comprehensive counseling regarding the full spectrum of surgical risks and potential benefits, and after careful consideration, has elected to proceed with the recommended surgical intervention. FOLLOW UP: POST-OP PLAN AT NEXT VISIT: RECHECK PATIENT EDUCATION: Medications Reviewed: YES In our visit today Mr. Jones and I have had a chance to go over my understanding of the patient's current condition, the natural course history without intervention and various interventional options. Questions were invited and answered, and the patient wishes to proceed as outlined above. I will be sure to keep you updated after Mr. Jones returns here for further follow-up. Thank you again for your referral. Please do not hesitate to contact me if you have any further questions. Signed and authenticated by: Marialuisa Morales [facility] [address] [place] [id number] . This message is confidential, intended only for the named recipient(s) and may contain information that is privileged or exempt from disclosure under applicable law. If you are not the intended recipient(s), you are notified that the dissemination, distribution or copying of this information is prohibited. If you received this message in error, please notify the sender then delete this message. # SIGNED BY Marialuisa Briones (O)03/18/2024 07:30AM Past Medical History Past Medical History: Asthma History of Any Multi-Drug Resistant Organisms: None Reported Past Surgical History: Appendectomy Additional Past Surgical History / Comment(s): orbital fracture repain Past Psychological History: No Psychological Hx Reported Smoking Status: Never smoker Past Alcohol Use History: Occasional Past Drug Use History: None Reported Medications and Allergies Home Medications Medication Instructions Recorded Confirmed Type Albuterol Inhaler [Ventolin Hfa 1 - 2 puff INHALATION Q6HR PRN 10/01/15 10/01/15 History Inhaler] Beclomethasone Dipropionate [Qvar 1 puff INHALATION 10/01/15 10/01/15 History 80 mcg] Erythromycin Ophth Oint [Romycin 1 applic LEFT EYE QID 10/01/15 10/01/15 History Ophth Oint] HYDROcodone/APAP 10-325MG [[place] 1 tab PO Q4HR PRN 10/01/15 10/01/15 History 10-325] Moxifloxacin [Vigamox 0.3%] 1 drop LEFT EYE TID 10/01/15 10/01/15 History cephALEXin [Keflex] 750 mg PO Q12HR 10/01/15 10/01/15 History Cyclobenzaprine [Flexeril] 5 mg PO TID #12 tablet 10/30/17 Rx Ibuprofen [Motrin] 600 mg PO Q6HR PRN #20 tab 10/30/17 Rx Ibuprofen [Motrin] 600 mg PO Q6HR PRN #40 day 05/04/23 Rx methocarbamoL [Robaxin] 1,000 mg PO TID PRN 5 Days #30 tab 05/04/23 Rx Allergies Allergy/AdvReac Type Severity Reaction Status Date / Time banana Allergy Anaphylaxis Verified 05/04/23 12:33 iodine Allergy Swelling Verified 05/04/23 12:33 latex Allergy Unknown Verified 05/04/23 12:33 shellfish derived [Shellfish] Allergy Swelling Verified 05/04/23 12:33 Physical Examination Osteopathic Statement: *. No significant issues noted on an osteopathic structural exam other than those noted in the History and Physical/Consult.
[2024-03-19 14:43] VITALS: BMI 25.8
[~2024-03-21 05:44] MED LIST: ONDANSETRON 4 MG/2 ML VIAL IVP PRN; TRANEXAMIC 1,000 MG/100ML-NACL 1,000 MG in SALINE 1 100ML.BAG IVPB PRN
[2024-03-21] MEDS ORDERED: LIDOCAINE 1% (10MG/ML) FOR IV START INTRADERMA PRN (06:14)
[2024-03-21] MEDS ORDERED: fentaNYL (PF) 50 MCG/ML 2 ML AMP IVP PRN (06:14)
[2024-03-21] MEDS: IV FLUID CONTINUATION 1,000 ML IV ONE ×3 (06:23→12:38)
[2024-03-21] MEDS: LACTATED RINGERS 1,000 ML IV SCH (06:32)
[2024-03-21] MEDS: ACETAMINOPHEN TAB 500 MG TAB PO PRN (06:37)
[2024-03-21] MEDS: DEXAMETHASONE SOD PHOSPHATE 4 MG/ML 1 ML VIAL IV ONE (06:38)
[2024-03-21] MEDS: GABAPENTIN 300 MG CAP PO PRN (06:38)
[2024-03-21] MEDS: ONDANSETRON 4 MG/2 ML VIAL IVP ONE (06:38)
[2024-03-21] MEDS: MIDAZOLAM 2 MG/2 ML VIAL IV PRN (06:44)
[2024-03-21] MEDS ORDERED: SUCCINYLCHOLINE CHLORIDE 200 MG/10 ML VIAL IV ONE (07:24)
[2024-03-21] MEDS ORDERED: LABETALOL 5 MG/ML VIAL MDV ONE (07:24)
[2024-03-21] MEDS ORDERED: MIDAZOLAM 2 MG/2 ML VIAL ONE (07:24)
[2024-03-21] MEDS ORDERED: ROCURONIUM 10 MG/ML (5 ML VIAL) IV ONE (07:24)
[2024-03-21] MEDS ORDERED: fentaNYL (PF) 50 MCG/ML 2 ML AMP ONE (07:24)
[2024-03-21] MEDS ORDERED: LIDOCAINE 1% INJ 10MG/ML (20 ML MDV) ONE (07:24)
[2024-03-21] MEDS ORDERED: TRANEXAMIC 1,000 MG/100ML-NACL PREMIX BAG ONE (07:24)
[2024-03-21] MEDS ORDERED: NEOSTIGMINE 1 MG/ML 10 ML VIAL ONE (07:24)
[2024-03-21] MEDS ORDERED: GLYCOPYRROLATE 0.2 MG/ML 2 ML VIAL ONE (07:24)
[2024-03-21] MEDS ORDERED: PROPOFOL 10 MG/ML 20 ML VIAL IV ONE (07:24)
[2024-03-21] MEDS ORDERED: KETAMINE HCL IN 0.9 % NACL 50 MG/5 ML SYRINGE ONE (07:24)
[2024-03-21] MEDS: THROMBIN (BOVINE) 5,000 UNIT VIAL TOPICAL ONE (08:08)
--- NOTE | 2024-03-21 10:20 | FL ---
EXAMINATION TYPE: FL guidance operating room, XR cervical spine limited DATE OF EXAM: 03/21/2024 10:10 AM COMPARISON: Pre Operative Images if available both CT/MRI or plain film CLINICAL INDICATION: Male, 39 years old with history of C4-C6 Fusion; TECHNIQUE: FL guidance operating room, XR cervical spine limited, multiple fluoroscopic images provid ed for procedure. Total fluoroscopy time: 36 seconds Total submitted images to PACS: 5 DAP: 0.6274 mGym2 Gycm2 uGym2 cGycm2 or equivalent. FINDINGS: Fluoroscopic images during internal fixation/arthroplasty demonstrate hardware in appropriate positio n. Hardware appears intact. No immediate complication identified. IMPRESSION: 1. No evidence for intraoperative complication. 2. Please see the operative/procedural note for further details. [facility], , 03/21/2024 10:18 AM
--- NOTE | 2024-03-21 10:27 | P.OP ---
Date of Procedure: 03/21/24 Preoperative Diagnosis: 1. C4-6 SPONDYLOSIS WITH STENOSIS AND RADICULOPATHY 2. 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 CERVICAL DISC DISPLACEMENT C4-5 AND C5-6 4. UE WEAKNESS 5. NECK PAIN Postoperative Diagnosis: 1. C4-6 SPONDYLOSIS WITH STENOSIS AND RADICULOPATHY 2. 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 CERVICAL DISC DISPLACEMENT C4-5 AND C5-6 4. UE WEAKNESS 5. NECK PAIN Procedure(s) Performed: 1. C5 PARTIAL CORPECTOMY FOR NEURAL DECOMPRESSION AND REMOVAL OF POSTERIOR OSTEOPHYTE 2. C4-5 ANTERIOR CERVICAL ARTHRODESIS (47648) 3. C5-6 ANTERIOR CERVICAL ARTHRODESIS (80808) 4. ANTERIOR CERVICAL INSTRUMENTATION (09504) 5. INSERTION OF BIOMECHANICAL DEVICES CAGEX X3 ([id number]) USE OF IONM USE OF IO MICROSCOPE Implants: DEVIN CASCADIA 12 DEG 10MM AND 9MM CAGES OZARK 44mm PLATE 14 MM SCREWS MAGNATOS, AUTOGRAFT Anesthesia: GETA Surgeon: Gibson Land Equalizing Saw Operator #1: Tonya Benton (WAS PRESENT AND ASSISTED WITH ALL ASPECTS OF THE CASE FROM POSITION TO DRESSING PLACEMENT) Estimated Blood Loss (ml): 25 IV fluids (ml): 1,100 Urine output (ml): 0 Pathology: none sent Condition: stable Disposition: PACU Indications for Procedure: Mr. Jones is presenting for evaluation of cervical pain. It was my pleasure to have seen and examined Mr. Jones. In our visit today we have had a chance to go over subjective complaints, physical examination findings and treatments including the natural course history without intervention and various interventional options. The patients imaging demonstrates: CT angio head and neck at [facility] 12/08/23: Similar findings to MRI with collapse of C4-5 and C5-6 that is severe with DDD and sclerosis due to the collapse. NO fractures noted. See report for angio read. No significant stenosis noted. MRI Cervical spine w/wo 09/16/23: Reviewed again. C4-6 degenerative changes with severe collapse of C5-6 disc space as well as moderate collapse of C4-5. There is kyphosis segmentally at C4-5 due to collapse. Degenerative disc herniations present at each level causing moderate stenosis at C4-5 and severe stenosis at C5-6 centrally and foraminally. No fractures noted. C0-1 and C1-2 are stable at this time. Cyst is all but gone from the SCM at this time as it was after the biopsy. C spine XR done at [facility] 07/18/23 AP/LAT/FLEX/EXT/OB: Reviewed again. C4-6 spondylosis with disc collapse, osteophyte formation and kyphosis present due to spondylotic collapse. On physical exam, Mr. Jones demonstrates: The patient reports experiencing a continued constant ache-like pain around the posterior neck that radiates down into the bilateral upper extremities with a sharp, shooting quality. The patient notes an intermittent "stabbing ice-pick" sensation around the base of the head down into the posterior neck, as well as a throbbing sensation around the left eye. The patient does not history of left orbital fracture several years ago. He notes progressive upper extremity numbness and tingling. He reports increased neck stiffness after prolonged activity. He states his current symptoms worsen with any quick movements of the neck or repetitive use of the upper extremities. The patient notes mild sleep disturbances related to his ongoing pain and associated symptoms. I have explained to the patient that as their condition progresses it will cause further neurological deficits and eventual paralysis. Based on the patients imaging, physical exam, and the rapid progression and disabling nature of their symptoms, at this time I recommend surgery in the form of a: C4-6 ACDF. I discussed the risk and benefits of this procedure at length with Mr. Jones. The patient agreed to considered pursuing the procedure abovementioned. Prior to surgery, she should follow up with her PCP (Cardio, ID, IM etc) for clearance. Questions were invited and answered, and the patient wishes to proceed as outlined below. Currently, I am recommendin. C4-6 ANTERIOR CERVICAL DISCECOMTY AND FUSION Description of Procedure: C4-6 ACDF The patient was seen and examined in the preoperative area. All preoperative protocols were followed. Informed consent was obtained, risks and benefits of the procedure were discussed at length. Risks including bleeding infection damage to the surrounding tissue and risk of reoperation were discussed with the patient. Risk of anesthesia up to and including was discussed with the patient. These are outlined in the risk review. They were willing to accept these risks and all the risks of surgery. The patient was given a weight-based dose of antibiotics in the form of 2 g Ancef. The patient was seen and evaluated by the anesthesia team who deemed them fit for surgery. The site was marked, the patient was willing to proceed with the procedure. The patient was transferred to the operative suite by the Department of anesthesia. They were then drifted off to sleep by the department anesthesia and GETA was performed. The patient tolerated this well. Jc catheter was placed by nursing staff, a-traumatically. Once confirmation of lines and ventilation the patient was transferred to a Supine Daljit table very carefully. All bony prominences including wrists, elbows, axilla, chest, hips, and thighs, and feet were padded very well. Special attention was paid to the genitalia, and these were padded accordingly. SCDs were placed on bilateral lower extremities and were connected. Arms were well padded and placed at their side thumbs up. Once in position, again we confirmed good ventilation capabilities and that lines were running appropriately. The patients Cervical spine was then exposed. 1010s were placed outlining the incision site. Standard alcohol was used to clean the incision site and allowed to dry. C-arm was used to bio-kirby the patient and confirm level for incision which was marked with a skin marker. Operative briefing was performed with all teams and everyone in agreement to proceed. The patient was then prepped and draped in a normal sterile fashion. Timeout was then performed, and all parties agreed with the procedure to be performed. Transverse skin incision was then made on the right side of the patient's neck 3 cm and dissection taken down to the platysma which was split transversely. Sub platysma flap was made, and an interval identified between SCM and medial structures. Omohyoid was visualized and protected. Blunt dissection taken down to the anterior cervical fascia which was identified. Blunt probe was then placed and lateral image taken which confirmed levels for operation. These levels were then marked with a bovi. Subperiosteal dissection of the longi ssimus muscles were then done over these levels identifying uncovertebral joints bilaterally. Retractor was then placed deep to these muscles and held in place with a bed arm. Starting at C5-6, Willard pins were placed into C5 and C6 and gentle distraction taken out over the levels. Venkat rongeur used to remove disc material. Operating microscope brought in for visualization. Complete discectomy performed at this level with curette, rongeur and pituitary. High speed izzy used to remove osteophytes anteriorly and posteriorly until PLL was identified. 6-0 up curette then used to identify the canal and resect the PLL. 2-0 and 3-0 Kerrison used then to remove PLL and disc herniation and performed b/l foraminotomies. Once good decompression was accomplished, meticulous hemostasis was performed. Sizers were then placed under lateral fluoroscopy until the desired height and lordosis. Cage was then selected, packed with autograft and allograft and placed under lateral imaging. Once in good position it was tested and stable. Motors run before and after cage placement were stable. The wound was irrigated, and autograft placed lateral to the cage anteriorly for fusion. Willard pin was then removed from C6 and placed into C4. Gentle distraction taken out over C4-5 now. Complete discectomy done at C4-5 as described including decompression, b/l foraminotomies and PLL resection. There was large disc osteophyte complex posterior to the C5 vertebral body and superior portion necessitating further endplate removal. Partial corpectomy of the C5 body was done to reach this and ensure complete decompression at this level and to remove the osteophyte here. Xray was used to ensure that all of this was removed and neural elements were decompressed. Spacers were then sized and placed under lateral imaging. Cage selected, packed with graft and placed under lateral images. Once in position, meticulous hemostasis performed, and motors remained stable before and after cage placement. AP image confirmed good placement of cages. Wound was irrigated. A separate, non-integrated plate was then selected and sized under lateral image. The plate was then placed with screws. Fixed screws drilled into C6 b/l and screws placed. Then into C5 and finally C4 with variable screws. All locking mechanisms were set, and all screws had good purchase. Final AP and lateral images taken confirmed good placement of hardware and good reduction and denominational of height. The wound was then irrigated copiously with NSS. Surgicel placed deep in the wound. A deep drain placed out a separate incision and sewed into place. Layered closure then performed with 3-0 Vicryl in the platysma and subQ tissue. 4-0 Strata fix in the subcuticular tissue. The wound was then cleaned, and dried and skin glue placed. Once glue dried an Opifoam was placed. The patient was then transferred back to their hospital bed a-traumatically. The drain continued to hold suction. They were placed in a soft collar. They were then awakened by the department of anesthesia having tolerated the procedure well without complications.
--- NOTE | 2024-03-21 11:09 | P.PN ---
Progress Note - Text Progress Note Date: 03/21/24 Postop: . Patient seen and examined they are doing well. Their pain is under control at this time. They are moving all 4 extremities without any issues. Vital signs are stable.. They are currently recovering and will be transferred to the floor once deemed stable by the PACU team and anesthesiologist. No Other issues at this time they deny fever chills shortness of breath or chest pain. [C collar in place, well fitting] [Medical management pending] [Continue with intravenous fluids, pain medication, muscle relaxers, home medication] [Soft diet to start to advance as tolerated] We will evaluate the patient in the morning.
[2024-03-21] MEDS: HYDROmorphone 0.5 MG/0.5 ML SYRINGE IVP PRN ×2 (11:22→14:25)
[2024-03-21] MEDS ORDERED: ONDANSETRON 4 MG/2 ML VIAL IVP PRN (11:33)
[2024-03-21] MEDS ORDERED: MAGNESIUM HYDROXIDE 2,400 MG/30 ML CUP PO PRN (11:33)
[2024-03-21] MEDS: PANTOPRAZOLE 40 MG/10 ML VIAL IVP SCH (15:48)
--- NOTE | 2024-03-21 17:02 | CT ---
EXAMINATION TYPE: CT cervical spine wo con DATE OF EXAM: 03/21/2024 4:48 PM COMPARISON: None. CLINICAL INDICATION: Male, 39 years old with history of s/p C4-C6 ACDF, s/p C4-C6 ACDF TECHNIQUE: Unenhanced CT of the cervical spine was performed with bone and soft tissue window setting s submitted. Coronal and sagittal reconstruction is obtained. CT DLP: 454 mGycm, Automated exposure control for dose reduction was used. IV Contrast: and , (none if empty) Oral Contrast: mL of , (none if empty) FINDINGS: Postoperative changes of anterior cervical discectomy and fusion at C4-5 and C5-6. Anterior fixation plates and screws are well placed. Intervertebral spacers are well seated at each level. Postoperativ e alignment is anatomic. Postsurgical soft tissue changes are evident. IMPRESSION: Appropriate postoperative alignment of the cervical spine with ACDF at C4-5 and C5-6 [facility], , 03/21/2024 5:00 PM
[2024-03-21] MEDS: oxyCODONE-APAP 7.5-325MG 1 EACH TAB PO PRN (18:43)
[2024-03-21] MEDS: HYDROmorphone 1 MG/ML 1 ML SYRINGE IVP PRN (21:00)
--- NOTE | 2024-03-22 01:46 | CONS ---
CONSULTATION REASON FOR CONSULTATION: Advice regarding asthma, GERD, and medical issues, requested by Orthopedic Surgery. HISTORY OF PRESENT ILLNESS: This is a 39-year-old gentleman with a past medical history of asthma, GERD, underwent C5-C6 cervical arthrodesis for severe cervical DJD. The patient is complaining of some shoulder pain at this time. No chest pain. No palpitation. PAST MEDICAL HISTORY: Asthma, GERD. Rest of the history and rest of the chart is also reviewed. HOME MEDICATIONS: Robaxin. Rest of medications reviewed, but not confirmed yet. ALLERGIES: Bananas. Rest of allergies noted. FAMILY HISTORY: No history of heart disease or strokes in the family. SOCIAL HISTORY: No history of smoking. Occasional alcohol. REVIEW OF SYSTEMS: Fourteen-point review of systems is negative except as mentioned earlier. PHYSICAL EXAMINATION: VITAL SIGNS: Pulse is 68, blood pressure 140/96, respirations 12. HEENT: Conjunctivae normal. NECK: No JVD. CARDIOVASCULAR: S1, S2. RESPIRATIONS: Breath sounds diminished at the bases. No rhonchi. No crackles. ABDOMEN: Soft, nontender. LEGS: No edema. NERVOUS SYSTEM: No focal deficits. NECK: Status post surgery. LABORATORY DATA: The preop labs reviewed. They are normal. RAFAT screen was positive in 2021. ASSESSMENT: 1. C4-C5, C5-C6 anterior cervical arthrodesis for cervical degenerative joint disease. 2. History of asthma. 3. Gastroesophageal reflux disease. 4. Degenerative joint disease. 5. History of positive RAFAT remotely. RECOMMENDATIONS AND DISCUSSION: This is a 39-year-old gentleman presented after surgery. At this time, I recommend to continue current medications and continue symptomatic treatment. Otherwise, resume the home medications. DVT prophylaxis. Recommend close followup with primary physician in the outpatient setting. MMODL / IJN: [id number] /
[2024-03-22 03:58] LABS: Basophils # (A) 0.1 k/uL (0-0.2); Basophils % (A) 1 %; Eosinophils # (A) 0.1 k/uL (0-0.7); Eosinophils % (A) 1 %; HCT 45.9 % (39.0-53.0); HGB 15.6 gm/dL (13.0-17.5); Lymphocytes # (A) 2.1 k/uL (1.0-4.8); Lymphocytes % (A) 20 %; MCH 31.4 pg (25.0-35.0); MCHC 34.1 g/dL (31.0-37.0); MCV 92.1 fL (80.0-100.0); Mean Platelet Volume 7.2; Monocytes # (A) 0.5 k/uL (0-1.0); Monocytes % (A) 5 %; Neutrophils # (A) 7.7 k/uL (1.3-7.7); Neutrophils % (A) 73 %; Platelet Count 239 k/uL (150-450); RBC 4.98 m/uL (4.30-5.90); WBC 10.5 k/uL (3.8-10.6)
[2024-03-22 04:05] LABS: African American GFR (CKD) >90 (>60 ml/min/1.73 sqM); Anion Gap 5 mmol/L; Blood Urea Nitrogen 10 mg/dL (9-20); Calcium 9.4 mg/dL (8.4-10.2); Carbon Dioxide 27 mmol/L (22-30); Chloride 104 mmol/L (98-107); Glucose 112 mg/dL (74-99); Non-African American GFR(CKD) >90 (>60 ml/min/1.73 sqM); Potassium 4.2 mmol/L (3.5-5.1); Sodium 136 mmol/L (137-145)
[2024-03-22 07:48] VITALS: BP 149/90; RESP 17; TEMP 98.6
[2024-03-22 07:53] VITALS: PULSE 103
[2024-03-22] MEDS: SENNOSIDES-DOCUSATE SODIUM 1 EACH TAB PO SCH (08:01)
[2024-03-22] MEDS: CYCLOBENZAPRINE 10 MG TAB PO PRN (08:02)
--- NOTE | 2024-03-22 09:13 | P.PN ---
Subjective Progress Note Date: 03/22/24 Principal diagnosis: 1. C4-6 spondylosis with stenosis 2. Bilateral upper extremity radiculopathy 3. Right parotid cyst, benign Patient seen and examined this morning. Patient is resting comfortably in bed. He does report that he has had increased pain of the bilateral shoulders since the procedure. Educated patient that he needs to utilize muscle relaxers along with his oral pain medication in order to manage his pain. Encourage patient to utilize ice packs along the shoulders as well to assist with pain control and swelling. Patient verbalizes understanding. Patient does report improved cervical pain and bilateral upper extremity radiculopathy since the p rocedure. Surgical incision to the anterior cervical spine, dressing is clean dry and intact with hard cervical collar in place. Discharge instructions have been discussed. No acute concerns. Objective - Vital Signs Vital signs: Vital Signs Temp 98.5 F 03/22/24 00:51 Pulse 102 H 03/22/24 00:51 Resp 16 03/22/24 00:51 BP 137/82 03/22/24 00:51 Pulse Ox 95 03/22/24 00:51 FiO2 Intake & Output 03/21/24 03/21/24 03/22/24 06:59 18:59 06:59 Intake Total 200 1950 Output Total 25 Balance 200 1925 Weight 83.4 kg 83.4 kg Intake: IV 200 1950 Output: Estimated Blood Loss 25 Other: # Voids 3 3 # Bowel Movements 0 - Exam Physical Examination General: The patient is awake and alert, in no acute distress Skin: Skin is warm and dry with no obvious rashes or lesions. Surgical incision to the anterior cervical spine, dressing is clean dry and intact with hard cervical collar in place. Eye: Pupils are equal, round and reactive to light, extra-ocular movements are intact; there is normal conjunctiva bilaterally. Neck: The neck is supple, there is Mild to moderate tenderness around the incision site and limited range of motion due to surgical procedure and hard cervical collar in place. Cardiovascular: There is a regular rate and rhythm. No murmur, rub or gallop is appreciated. Respiratory: Respirations are non-labored, breath sounds are equal. Gastrointestinal: Soft, non-distended, non-tender abdomen. Back: There is no tenderness to palpation in the midline, paralumbar, parathoracic or buttocks region. There is no obvious deformity . Musculoskeletal: ROM limited secondary to pain and stiffness from surgical procedure. Right: Shoulder abduction 4/5, elbow flexors 5/5, wrist dorsiflexors 5/5. finger abductor 5/5, bibliographic services specialist 5/5, hip flexor 5/5, knee flexor 5/5, ankle dorsiflexor 5/5, ankle plantarflexion 5/5 and extensor hallucis 5/5. Left: Shoulder abduction 4/5, elbow flexors 5/5, wrist dorsiflexors 5/5. finger abductor 5/5, bibliographic services specialist 5/5, hip flexor 5/5, knee flexor 5/5, ankle dorsiflexor 5/5, ankle plantarflexion 5/5 and extensor hallucis 5/5. Neurological: CN 2-12 intact. There are no obvious motor or sensory deficits. Movement and coordination equal and intact. Sensory exam to light touch intact C5-T1 and intact from L2-S1. Reflexes 2/4 in bilateral upper and lower extremities. Negative Hoffmans, babinski, and clonus signs. Psychiatric: Cooperative, appropriate mood & affect, normal judgment. - Labs CBC & Chem 7: 03/22/24 03:17 03/22/24 03:17 Labs: Abnormal Lab Results - Last 24 Hours (Table) 03/22/24 Range/Units 03:17 Sodium 136 L (137-145) mmol/L Glucose 112 H (74-99) mg/dL Assessment and Plan Assessment: Postop day 1: C4-C6 ACDF Plan: -Appreciate treasury consultant and team management. -Activity: Ambulate QID, OOB all meals, up and about, limit lifting bending twisting to less than 5 lbs. Use walker or cane if needed for stability. -Daily PT/OT, increase ambulation strength and balance. -Collar on at all times, may remove for showers. -Pain control: Adequate at this time -Meds: reviewed -GI ppx: senna, Miralax -DVT PPX: scds, TEDS -Hygiene: Maintain incision clean and dry. May change dressing as needed, please document in notes if performed. -Encourage IS 10x/hr -Dispo: Discharge home first thing this morning. *I reviewed and discussed this case with my attending Dr. Land, whom has reviewed this chart and films and is in agreement with assessment and plan of care as outlined above. I have personally seen and examined the patient, performed the documentation and the assessment and plan as written. Number of minutes spent on the visit: 20m.
--- NOTE | 2024-03-22 10:19 | P.DS ---
Providers Date of admission: 03/21/24 Expected date of discharge: 03/22/24 Attending physician: Gibson Land DO Consults: 03/21/24 11:33 Consult Physician Routine Consulting Provider: Michael Lamas Reason/Comments: Medical management Do you want consulting provider notified?: Yes Primary care physician: Jean-Paul Schuster Bradley Hospital Course: Hospital Course: The patient was evaluated preoperatively and found to have the diagnosis of Cervical spondylosis with stenosis. They underwent appropriate preoperative care and were willing to undergo the intended procedure. They underwent a successful C4-C6 ACDF , were recovered appropriately and sent to the floor. While on the floor they worked with physical therapy, occupational therapy and nursing to enhance their recovery experience. Their pain was well controlled through their stay and they were started on appropriate medications, DVT ppx modalities, activity and dietary needs. Daily labs were monitored closely, and transfusions were only used when necessary. Medicine as well as other consulting services have made their input and have helped with our team approach and multidisciplinary care. PT milestones have been met and passed and they have made the recommendation of [home vs sherry] for this patient and treating providers agree with this care path. The patient will be discharged home with appropriate medications, instructions and follow-up information and in stable condition. Patient Condition at Discharge: Good Plan - Discharge Summary Discharge Rx Participant: Yes New Discharge Prescriptions: New cefaDROXiL [Duricef] 500 mg PO Q12HR #10 cap Cyclobenzaprine [Flexeril] 10 mg PO TID PRN #40 tab PRN Reason: Muscle Spasm oxyCODONE-APAP 7.5-325MG [Percocet 7.5-325 mg] 1 tab PO Q4HR PRN #40 tab PRN Reason: Pain Sennosides/Docusate Sodium [Senna Plus 8.6-50 mg Softgel] 1 each PO DAILY PRN #20 capsule PRN Reason: Constipation No Action Albuterol Inhaler [Ventolin Hfa Inhaler] 1 - 2 puff INHALATION Q6HR PRN PRN Reason: Shortness Of Breath Moxifloxacin [Vigamox 0.3%] 1 drop LEFT EYE TID HYDROcodone/APAP 10-325MG [[place] 10-325] 1 tab PO Q4HR PRN PRN Reason: Pain Control Erythromycin Ophth Oint [Romycin Ophth Oint] 1 applic LEFT EYE QID cephALEXin [Keflex] 750 mg PO Q12HR Beclomethasone Dipropionate [Qvar 80 mcg] 1 puff INHALATION Cyclobenzaprine [Flexeril] 5 mg PO TID #12 tablet Ibuprofen [Motrin] 600 mg PO Q6HR PRN #20 tab PRN Reason: Pain methocarbamoL [Robaxin] 1,000 mg PO TID PRN 5 Days #30 tab PRN Reason: pain Ibuprofen [Motrin] 600 mg PO Q6HR PRN #40 day PRN Reason: Pain Discharge Medication List Albuterol Inhaler [Ventolin Hfa Inhaler] 1 - 2 puff INHALATION Q6HR PRN 10/01/15 [History] Beclomethasone Dipropionate [Qvar 80 mcg] 1 puff INHALATION 10/01/15 [History] Erythromycin Ophth Oint [Romycin Ophth Oint] 1 applic LEFT EYE QID 10/01/15 [History] HYDROcodone/APAP 10-325MG [[place] 10-325] 1 tab PO Q4HR PRN 10/01/15 [History] Moxifloxacin [Vigamox 0.3%] 1 drop LEFT EYE TID 10/01/15 [History] cephALEXin [Keflex] 750 mg PO Q12HR 10/01/15 [History] Cyclobenzaprine [Flexeril] 5 mg PO TID #12 tablet 10/30/17 [Rx] Ibuprofen [Motrin] 600 mg PO Q6HR PRN #20 tab 10/30/17 [Rx] Ibuprofen [Motrin] 600 mg PO Q6HR PRN #40 day 05/04/23 [Rx] methocarbamoL [Robaxin] 1,000 mg PO TID PRN 5 Days #30 tab 05/04/23 [Rx] Cyclobenzaprine [Flexeril] 10 mg PO TID PRN #40 tab 03/21/24 [Rx] Sennosides/Docusate Sodium [Senna Plus 8.6-50 mg Softgel] 1 each PO DAILY PRN #20 capsule 03/21/24 [Rx] cefaDROXiL [Duricef] 500 mg PO Q12HR #10 cap 03/21/24 [Rx] oxyCODONE-APAP 7.5-325MG [Percocet 7.5-325 mg] 1 tab PO Q4HR PRN #40 tab 03/21/24 [Rx] Follow up Appointment(s)/Referral(s): Jean-Paul Cuevas [Primary Care Provider] - 1 Week (Office is not answering at time of discharge. Please call for follow-up appointment.) Gibson Land DO [Doctor of Osteopathic Medicine] - 04/05/24 9:30 am Activity/Diet/Wound Care/Special Instructions: Any increase of difficulty in swallowing, hoarse voice, or difficulty in breathing notify surgeon or come directly to the ER. Spine Discharge and Recovery Instructions Date of Surgery: 03/21/2024 Diagnosis: Cervical spondylosis with stenosis Procedure: C4-C6 ACDF Medications: See medication list All medication refills should be obtained through your primary care doctor or y our clinic spine surgeon. Please discuss prescription refills at your follow up appointment. Do not call the hospital for medication refills. Activity: Encourage ambulation with assist of walker, Up and about 6-8x daily PT/OT daily work on balance, strength and mobility Up in chair with all meals Shower daily Brace: Use brace when up and about, do not wear in bed or shower Dressing: Leave your dressing in place for a total of 3 days post operatively. Then you may remove your dressing and leave open to air. Keep the area clean and if not able to keep area clean, then cover with sterile gauze and tape. Showering: You may shower 3 days after your procedure allowing soap and water to run over incision. Do not scrub. Do not soak. Blot dry. Follow up: Please confirm a follow up appointment with your surgeon 2 weeks post operatively. Please make an appointment to follow up with your PCP in 1-2 weeks after surgery for evaluation '3 phase, 3-week plan' POST OP WEEKS 1-3 1. Lifting/carrying/pushing/pulling limited to less than 5 pounds. 2. Do not sit for longer than 15 minutes at one time. Get up and walk around. Prolonged sitting is NOT advised. If you lay down, see if you can tolerate laying down on you front (belly side) 3. Walk for periods of 15 minutes = 1 mile but no longer; do it multiple times times each day. 4. Ice your low back after activity. POST OP WEEKS 3-6 1. Lifting limited to less than 20 pounds. 2. Do not sit for longer than 30 minutes at a time. Frequently change positions. Use a sit-to stand workstation or take frequent breaks from sitting if you have returned to work. 3. Walk for 30 minutes each day. If possible, do these three or more times a day POST OP WEEKS 6+ At your 6-week appointment we will give you a physical therapy referral to focus on a core stabilization and strengthening program. You should also work on leg & buttock strengthening, hamstring & quadriceps stretching, and continue a low impact aerobic activity program such as swimming, walking, or riding a stationary bicycle. During the initial 6 weeks after your surgery, you are at the highest risk of re-injuring your spine. You should generally avoid BLT's (bending, lifting and twisting combination motions) and follow the above guidelines to reduce the kaufman ce of reinjury. You can anticipate post op appointments in our office at approximately 3 weeks and 6 weeks after your surgery. INCISION CARE: If your incision is not draining you do NOT need to cover it with a dressing. Keep your incision clean, dry and intact. In most cases, we apply skin glue, lang or sutures to the incision at the time of surgery. This will be like a crust or have the appearance of a scab and will fall off in time on its own. The stitches or lang need to be removed at 3 weeks post op appointment. You may begin to shower 3 days after surgery (this allows the glue to shah well). However, please avoid scrubbing the incision site or peeling off any of the skin glue. This will ensure optimal healing of your incision. Also, during this time avoid soaking the incision area in water - this includes swimming pools, hot tubs or baths. No ointments, lotions or oils on the incision until your surgeon allows. Leave lang, sutures or glue in place. Neurological dysfunction that comes on suddenly can also be a sign of a stroke. Below some common symptoms of a stroke are listed: B - balance difficulty such as sudden onset walking or leaning to one side - NEW E - eye problem such as sudden double vision or trouble seeing on one side - NEW F - Facial weakness or numbness on one side - NEW A - Arm or leg weakness or numbness on one side - NEW S - Slurred speech or difficulty with word finding - NEW T - Time is BRAIN! Call 911 as soon as you recognize these symptoms Diet: Consume a regular diet rich in vegetables and lean protein such as chicken or fish. You should consume in a ratio of approximately 20% fats|40% carbohydrates|40%protein. Vegetables, sweet potatoes, brown rice or quinoa are examples of good carbohydrates. Chips, white bread, cookies and sweets/sugar are examples of bad carbohydrates. Limit your bad carbs, go wild with good carbs. "Life's Simple 7" Guidelines as per [place] [employer] These will help you reclaim your life after surgery and cotton ginner helper in your recovery, keeping in mind your restrictions. (1) Get Active. Physical activity can help people lose weight, control high blood pressure and cholesterol, feel emotionally better, and sleep better. (2) Control Cholesterol. Avoid a diet high in saturated fat, trans fat, & cholesterol. Limit whole milk & cream, ice cream, butter, egg yolks, processed meats (like sausage and hot dogs), and fatty meats. Choose healthy foods that are low in saturated fat, trans fat and cholesterol which include: Fruits and vegetables, fiber rich grain products (like whole grain pasta and brown rice), lean meat such as chicken, fish, nuts, seeds, and legumes. (3) Eat Better. Eat small portions. Shop at the grocery with a list and do not stray from it. Tips for a healthy diet include: Limit sodium intake to less than 1500mg daily, avoid prepackaged, processed, and fast foods, choose a diet rich in fruits, vegetables, and whole grain, high fiber foods, and limit saturated & cholesterol in your diet. (4) Manage Blood Pressure. If you have high blood pressure, you should have a cuff at home so that you can check your blood pressure regularly. Be sure you have a good cuff. An arm one is generally better than a wrist one. Bring the cuff to a doctor's appointment to validate that the measurements that your cuff are taking are accurate. Take your blood pressure twice daily when you are sitting down and relaxing. Record the numbers in a log and bring this log with you to your doctors' appointments. (5) Lose Weight if your BMI is above 25. A healthy BMI is between 19-25. To calculate Your BMI, you may use a Standard BMI Calculator on the NIH BMI website: <www.nhlbi.nih.gov/guidelines/obesity/BMI/bmicalc.htm>. Weigh oneself daily. If you are overweight, set a goal to lose weight. A pound a week loss if needed is a good target. (6) Reduce Blood Sugar. Limit foods and liquids with "added sugars." (Added sugars include sucrose, fructose, glucose, maltose, dextrose, high fructose corn syrup, corn syrup, concentrated fruit juice and honey). (7) Stop Smoking. If you smoke, quitting smoking is one of the best things that you can do for your health. Smoking increases your risk of heart attack, stroke, and peripheral vascular disease, which is a build-up of plaque in your arteries. Please discard all the cigarettes and lighters in your house. Have a plan for what you will do when you have the urge to smoke. Direct and second- hand smoke shortens your life as well as the lives of your family, friends and others around you. For your health and the health of those around you, please consider quitting! Proper Bending Body Mechanics: Maintain a wide stance with one foot slightly in front of the other. Keep your back straight. Bend utilizing the strength in your hips and knees. Do not bend at the waist. Maintain the lifted object at your waist-level close to your body. Avoid lifting weight that causes immediately pain or pain anywhere in the body afterwards. Smoking/Nicotine If there was ever one thing that you could do to increase your overall health, decrease your risk of cardiovascular problems by about 39% the second you make the choice, it is to STOP SMOKING. Your body's most instant gratification is the second you stop smoking. We have all heard the studies, read the articles but it is true, smoking is extremely bad for your overall health, and moreover it is detrimental to your bone health. Nicotine, IN ANY FORM, kills bone cells, prevents your body from healing fractures, and significantly prolongs healing after surgery. In spine surgery specifically, it increases your risk of not healing your bones to create a fusion and increases your risk of having a revision surgery due to this up to 60%. I know it is hard. I know it feels impossible. But there are ways. Take control of your life. We are here to help you through it. And when you are ready, ask us and we can direct you to help if you desire. Use the START Plan to Quit Smoking (please visit the Helpguide.org website listed below for more information): S = Set a quit date. Choose a date within the next 2 weeks, so you have enough time to prepare without losing your motivation to quit. If you mainly smoke at work, quit on the weekend, so you have a few days to adjust to the change. T = Tell family, friends, and co-workers that you plan to quit. Let your friends and family in on your plan to quit smoking and tell them you need their support and encouragement to stop. Look for a quit viola who wants to stop smoking as well. You can help each other get through the rough times. A = Anticipate and plan for the challenges you'll face while quitting. Most people who begin smoking again do so within the first 3 months. You can help yourself make it through by preparing ahead for common challenges, such as nicotine withdrawal and cigarette cravings. R = Remove cigarettes and other tobacco products from your home, car, and work. Throw away all your cigarettes (no emergency pack!), lighters, ashtrays, and matches. Wash your clothes and freshen up anything that smells like smoke. Shampoo your car, clean your drapes and carpet, and steam your furniture. T = Talk to your doctor about getting help to quit. Your doctor can prescribe medication to help with withdrawal and suggest other alternatives. If you can't see a doctor, you can get many products over the counter at your local pharmacy or grocery store, including the nicotine patch, nicotine lozenges, and nicotine gum. Resources for Quitting Smoking: <https://www.[place].gov/documents/[facility]/Quit_Tobacco_Resources_for_patients_313 480_7.pdf> Supplementation: Take recommended dosages of Vitamin D and Calcium to help fortify your bones and help them to heal. See your health maintenance packet for dosages and recommended levels. DVT/VTE prophylaxis: You will be given compression stockings from the hospital. Wear these daily for the first two weeks after surgery. You may take them off at night. You may be prescribed a medication to help thin your blood. Take this as directed. If you are not prescribed this medication, early and frequent ambulation has been shown to be the best prophylaxis to deep vein thrombosis and sequelae related to this event. Discharge Disposition: HOME SELF-CARE
[2024-03-22] MEDS: BENZOCAINE SPRAY 1 CAN MUCOUS MEM PRN (12:45)
[2024-03-22] MEDS: oxyCODONE-APAP 10-325MG 1 EACH TAB PO PRN (12:52)
--- NOTE | 2024-03-25 10:24 | P.PN ---
Subjective Progress Note Date: 03/22/24 This is a pleasant 39-year-old male who was recently admitted under orthopedics and underwent C5-C6 cervical arthrodesis for severe cervical degenerative joint disease. Patient is reporting some shoulder pain although managed on current regimen. Patient is afebrile with no reports of chest pain or shortness of breath or palpitations. Patient has been instructed to continue using incentive spirometer at least 10 times every hour while awake. Continue bowel regimen and pain management per orthopedics. Patient has been instructed to follow-up with primary care provider on discharge Review of systems: Constitutional: No reports of fatigue, fever, or chills Cardiovascular: No reports of chest pain or palpitations Respiratory: No reports of shortness of breath or cough GI: No reports of nausea, no reports of vomiting, no diarrhea : No reports of dysuria or retention Neurovascular: reports of generalized weakness, reports some back pain All medications have been reviewed PHYSICAL EXAMINATION: GENERAL: The patient is alert and oriented x4, Well developed, well nourished. HEENT: Pupils are round and equally reacting to light. EOMI. no scleral icterus. No conjunctival pallor. Normocephalic, atraumatic. No pharyngeal erythema. No thyromegaly. CARDIOVASCULAR: S1 and S2 muffled PULMONARY: diminished breath sounds bilaterally with no wheezing or rhonchi noted. ABDOMEN: soft. Nontender on exam. obese. non-distended, normoactive bowel sounds. No palpable organomegaly. MUSCULOSKELETAL: No joint swelling or deformity. EXTREMITIES: No cyanosis, clubbing, or pedal edema. NEUROLOGICAL: Gross neurological examination did not reveal any focal deficits. Diffuse weakness SKIN: No rashes. Assessment: C4-C5, C5-C6 anterior cervical arthrodesis for cervical degenerative joint disease History of asthma, not in exacerbation GERD Degenerative joint disease history History of positive RAFAT remotely GI prophylaxis DVT prophylaxis Full code Plan: Recommend to continue with current medications and management per orthopedic services. Patient has been seen and evaluated by PT/OT therapy with plans to be discharged today. Appropriate home medications resumed Encourage incentive spirometer use at least 10 times every hour while awake Continue with bowel regimen as needed and scheduled DVT prophylaxis as well as pain management per orthopedics Thank you kindly for this consultation. We will continue to follow with orthopedics during hospitalization The impression and plan of care has been dictated by Sarah Bauman, nurse practitioner as directed. Dr. Adams MD I have performed a history and examination and MDM of this patient, discussed th e same with the dictator, and agree with the dictator's assessment and plan as written ,documented as a scribe. Based on total visit time, I have performed more than 50% of the visit. Any additional findings or plans will be noted. Objective - Vital Signs Vital signs: Vital Signs Temp 98.6 F 03/22/24 06:45 Pulse 103 H 03/22/24 06:45 Resp 17 03/22/24 06:45 BP 149/90 03/22/24 06:45 Pulse Ox 94 L 03/22/24 06:45 FiO2 Intake & Output 03/21/24 03/22/24 03/22/24 18:59 06:59 18:59 Intake Total 1950 Output Total 25 Balance 1925 Weight 83.4 kg Intake: IV 1950 Output: Estimated Blood Loss 25 Other: # Voids 3 3 # Bowel Movements 0 - Labs CBC & Chem 7: 03/22/24 03:17 03/22/24 03:17 Labs: Abnormal Lab Results - Last 24 Hours (Table) 03/22/24 Range/Units 03:17 Sodium 136 L (137-145) mmol/L Glucose 112 H (74-99) mg/dL
== END 2024-03-22 14:15 | disposition home or self-care (01) ==
LOC: OR 05:44 → 4SSUR 12:30 → OR 03-22 14:15
PROVIDERS: ATTEND Orthopaedic Surgery
DX: M47.22 Other spondylosis with radiculopathy, cervical region (principal); M48.02 Spinal stenosis, cervical region; G47.9 Sleep disorder, unspecified; K11.6 Mucocele of salivary gland; J45.909 Unspecified asthma, uncomplicated; Z88.8 Allergy status to other drugs, medicaments and biological substances; Z98.1 Arthrodesis status; Z90.49 Acquired absence of other specified parts of digestive tract; Z79.51 Long term (current) use of inhaled steroids; Z91.040 Latex allergy status; Z79.899 Other long term (current) drug therapy
CPT/HCPCS: 80048; 85025; 72040; 72125; 22551; 22552; 22845; 20930; 20936; L0120; C1713; J2250; J1100; J0690 ×2; J2405; J1171 ×3; J2470 ×2